=== PATIENT | male | born 1960 | race Caucasian/White ===

== ENCOUNTER 2017-03-26 07:40 | Emergency (ER) | payer OTHER ==
[~2017-03-26] VITALS: Ht 182.9 cm; Wt 102.1 kg
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
[2017-03-26] MEDS ORDERED: HYDR-971 PO (08:22)
[2017-03-26] MEDS ORDERED: AZIT250T PO (08:22)
[2017-03-26 08:30] VITALS: BP 133/80
[2017-03-26] MEDS ORDERED: ORPHENADRINE CITRATE 60 MG/2 ML VIAL. IM ONE (08:30)
[2017-03-26] MEDS ORDERED: META-21 PO (08:49)
== END 2017-03-26 08:55 | disposition home or self-care (01) ==
LOC: ER 07:40
DX: S06.0X0A Concussion without loss of consciousness, initial encounter (principal); S29.012A Strain of muscle and tendon of back wall of thorax, initial encounter; I10 Essential (primary) hypertension; Z87.442 Personal history of urinary calculi; V89.2XXA Person injured in unspecified motor-vehicle accident, traffic, initial encounter; Y93.89 Activity, other specified; Y99.8 Other external cause status; Y92.488 Other paved roadways as the place of occurrence of the external cause
CPT/HCPCS: 96372; 99283; J2360